=== PATIENT | male | born 1985 | race African-American/Black ===

== ENCOUNTER 2021-11-22 13:31 | Emergency (ER) | payer OTHER, SELFPAY ==
--- NOTE | ~2021-11-22 | XR_ITS ---
EXAMINATION: XR hand RT min 3V DATE: 11/22/2021 13:54 INDICATION: Right hand pain after lifting a box TECHNIQUE: Posteroanterior, oblique and lateral views of the right hand were obtained. COMPARISON: None. FINDINGS: Old fracture of the right third metacarpal diaphysis which is healed in essentially anatomic alignmen t. No acute traumatic malalignment or acute fracture. 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 Remaining joint spaces are relatively preserved. Soft tissues are unremarkable. IMPRESSION: 1. No acute osseous abnormality. Reviewed, dictated and finalized at location A.
[2021-11-22 13:39] VITALS: BP 137/77; PULSE 71; RESP 16; TEMP 36.8; O2SAT 99
--- NOTE | 2021-11-22 13:39 | ED.UPPEXIN ---
HPI - Extremity Injury (Upper) General Chief Complaint: Extremity Injury, Upper Stated Complaint: right wrist pain Time Seen by Provider: 11/22/21 13:39 Source: patient, family, RN notes reviewed and old records reviewed Mode of arrival: ambulatory Limitations: no limitations History of Present Illness HPI narrative: 36-year-old male presents to the [facility] with complaints of right dorsal aspect right hand pain. Patient states that he was at work yesterday when he picked up a box and felt a strain in the dorsal aspect of her right hand. No redness. Mild swelling patient reports is chronic, states he think he broke his hand years ago and it never healed properly. Full range of motion. No snuff box tenderness. Capillary refill under 2 seconds. 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 Related Data Allergies Allergy/AdvReac Type Severity Reaction Status Date / Time No Known Allergies Allergy Verified 11/22/21 13:49 Review of Systems Review of Systems: All systems reviewed & are unremarkable except as noted in HPI and below Constitutional: Constitutional: Reports no additional constitutional complaints, Denies chills, Denies fever(s), Denies headache(s) and Denies weakness Eyes: Eyes: Reports no additional eye complaints ENT: Reports system reviewed and no additional complaints, except as documented, Denies vertigo, Denies dizziness and Denies headache(s) Cardiovascular: Cardiovascular: Reports no additional cardiovascular complaints, Denies chest pain, Denies syncope and Denies dyspnea Respiratory: Respiratory: Reports no additional respiratory complaints, Denies cough and Denies dyspnea Gastrointestinal: Gastrointestinal: Reports no additional gastrointestinal complaints, Denies abdominal pain, Denies nausea and Denies vomiting Musculoskeletal: Musculoskeletal: Reports as per HPI, Denies joint swelling and Denies numbness Integumentary/Breasts: Skin/Breast: Reports system reviewed and no additional complaints, except as docu Neurologic: Reports system reviewed and no additional complaints, except as documented, Denies confusion, Denies vertigo, Denies dizziness, Denies syncope, Denies headache(s), Denies focal weakness, Denies numbness and Denies weakness Psychiatric: Psychiatric: Reports no additional psychiatric complaints and Denies confusion Allergic/Immunologic: Allergic/Immunologic: Reports no additional allergic/immunologic complaints PMFSH Past Medical History Medical History (Updated 11/22/21 @ 17:00 by Sandra Nagel APRN) No significant medical problems Surgical History Surgical History (Updated 11/22/21 @ 17:00 by Sandra Nagel APRN) No pertinent past surgical history Comments At the time of my signature, I reviewed and agree with the nursing past medical, surgical, social, and family history. There is no relevant family history pertinent to the patient complaint. Exam Const: General: healthy appearing and no acute distress; No confusion Nutritional Appearance: well nourished Orientation/consciousness: patient oriented x3 and No confusion Limitations: no limitations HENMT: Head: normal to inspection Ears: external ears normal Eyes: Pupils: Equal, round and reactive pupils present Neck: Neck: normal visual inspection, no lymphadenopathy and no meningeal signs Chest: Chest palpation & inspection: normal inspection of the chest Resp: Effort & Inspection: normal respiratory effort and no use of accessory muscles Auscultation: clear to auscultation bilaterally, no crackles, no rales, no rhonchi and no wheezes Cardio: Rate: regular rate Rhythm: regular rhythm Back/Spine/Pelvis: Cervical Spine: normal cervical lordosis Thoracic/Lumbar Spine: thoracic and lumbar spine normal to inspection Skin: General skin exam: normal color Rashes: no rashes Wounds: no wounds Neuro: General: patient oriented x3, moves all extremities, no meningeal signs, no focal motor deficits and No
== END 2021-11-22 14:18 | disposition home or self-care (01) ==
PROVIDERS: Emergency Provider Nurse Practitioner
DX: S63.91XA Sprain of unspecified part of right wrist and hand, initial encounter (principal); S66.911A Strain of unspecified muscle, fascia and tendon at wrist and hand level, right hand, initial encounter; X50.0XXA Overexertion from strenuous movement or load, initial encounter; Y99.0 Civilian activity done for income or pay
CPT/HCPCS: 73130; 99203; G0463

== ENCOUNTER 2021-12-30 11:21 | Emergency (ER) | payer OTHER, SELFPAY ==
[2021-12-30 11:33] VITALS: BP 124/85; PULSE 69; RESP 16; TEMP 37.1; O2SAT 99
--- NOTE | 2021-12-30 12:12 | ED.EYEPROB ---
HPI - Eye Problem General Chief complaint: Eye Problems Stated complaint: left pain/redness Time Seen by Provider: 12/30/21 12:15 Source: patient Mode of arrival: ambulatory Limitations: no limitations History of Present Illness HPI Narrative: 36 y/o male presented for c/o left eye irritation today. States he woke with left eye red, irritated, draining clear fluid. Denies crusted shut, photophobia or fb sensation. Denies pain or vision change, sinus congestion. He used red eye drops which caused more irritation. Denies sick contacts MD chief complaint: eye pain Related Data Allergies Allergy/AdvReac Type Severity Reaction Status Date / Time No Known Allergies Allergy Verified 12/30/21 11:36 Review of Systems Review of Systems: CONSTITUTIONAL: Denies body aches, fever, chills EYES:Endorses redness and itching to left eye ENT: Denies rhinorrhea, congestion, sore throat, or otalgia. CARDIOVASCULAR: Denies chest pain, palpitations RESPIRATORY: Denies cough or dyspnea. SKIN: Denies rash, itching, or wounds. MUSCULOSKELETAL: Denies back pain, joint pain, or myalgia. NEUROLOGIC: Denies headache All systems reviewed & are unremarkable except as noted in HPI and below PMFSH Past Medical History Medical History No significant medical problems Surgical History Surgical History No pertinent past surgical history Comments At time of signature, I have reviewed and agree with nursing past medical, surgical, social and family history unless otherwise noted. Please see nursing chart for further information. There is no relevant family history pertinent to the presenting complaint Exam Narrative: GENERAL: Well-appearing HEAD: Normocephalic, atraumatic. EYES: left conjunctival injection, no apparent purulent discharge, no eye lid swelling, EOMI. Lid eversion showed no FB. ENT: Mucous membranes pink and moist. No rhinorrhea. TMs normal bilaterally. CHEST: Clear to auscultation. HEART: Regular rate and rhythm. SKIN: Warm, dry, no rash. Normal skin turgor. NEURO: No focal deficits. Alert and oriented x3 PSYCH: Normal affect. Course Course Emergency Course: Patient is aware of diagnosis, understands and agrees to treatment plan. Anticipatory guidance given. Patient agrees to follow-up as directed and is aware of reasons to seek care at the emergency department. Portions of this record may have been created with voice recognition software Level of Care: Express Care Visit Vital Signs Vital signs: Vital Signs Temperature 98.8 F 12/30/21 11:33 Pulse Rate 69 12/30/21 11:33 Respiratory Rate 16 12/30/21 11:33 Blood Pressure 124/85 12/30/21 11:33 Pulse Oximetry 99 12/30/21 11:33 Oxygen Delivery Room Air 12/30/21 11:33 Temperature 98.8 F 12/30/21 11:33 Pulse Rate 69 12/30/21 11:33 Respiratory Rate 16 12/30/21 11:33 Blood Pressure 124/85 12/30/21 11:33 Pulse Oximetry 99 12/30/21 11:33 Oxygen Delivery Room Air 12/30/21 11:33 MDM - Eye Problem MDM Narrative Medical decision making narrative: Advised supportive measures, eyedrop prescription, and signs/symptoms to go to the ER. Pt is appropriate for outpt treatment and f/u. Differential Diagnosis Differential diagnosis: Likely corneal abrasion, conjunctivitis, acute iritis and other Discharge Plan Discharge Clinical Impression: Bacterial conjunctivitis Patient Disposition: Home, Self-Care Condition: Stable Instructions: Antibiotic Form, Conjunctivitis (ED) Additional Instructions: Avoid touching or rubbing your eye. Use over the counter lubricating eye drops as needed for irritation Use a warm or cool washcloth on your eye for comfort Use eyedrops as directed -- you are contagious for 24 hours after starting the antibiotic Practice good handwashing and hygiene to prevent spread of inf
== END 2021-12-30 12:18 | disposition home or self-care (01) ==
PROVIDERS: Emergency Provider Nurse Practitioner Family
DX: H10.9 Unspecified conjunctivitis (principal)
CPT/HCPCS: 99213; G0463

== ENCOUNTER 2023-06-15 18:08 | Emergency (ER) | payer OTHER, SELFPAY ==
--- NOTE | ~2023-06-15 | XR_ITS ---
EXAM: XR shoulder LT min 2V DATE: 06/15/2023 19:08 HISTORY: post-reduction . COMPARISON: Same date at 6:24 PM. FINDINGS/IMPRESSION: Successful interval left shoulder reduction. Hill-Sachs deformity. Reviewed, dictated and finalized at location K. DELIVERER
--- NOTE | ~2023-06-15 | XR_ITS ---
EXAM: XR shoulder LT min 2V DATE: 06/15/2023 18:29 HISTORY: injury, hx dislocation . COMPARISON: None available. FINDINGS: Normal mineralization. No fracture. Anterior dislocation of the humeral head. No lytic or blastic lesion. Joint spaces are maintained. No erosion or periosteal change. Soft tissues within nor mal limits. IMPRESSION: Anterior left shoulder dislocation. Reviewed, dictated and finalized at location K. ENT SAFETY MANAGER
[2023-06-15 18:10] VITALS: BP 141/81; PULSE 93; RESP 20; TEMP 36.1; O2SAT 98
--- NOTE | 2023-06-15 18:38 | ED.UPPEXIN ---
HPI - Extremity Injury (Upper) General Chief Complaint: Extremity Injury, Upper Stated Complaint: dislocated shoulder Time Seen by Provider: 06/15/23 18:18 Source: patient Mode of arrival: ambulatory Limitations: no limitations History of Present Illness HPI narrative: This is a 37-year-old male that presents to the emergency department for left shoulder injury sustained just prior to arrival. Reports he was wrestling and believes he dislocated his shoulder. He has done this several times before. Reports decreased range of motion and pain. Denies numbness. Related Data Allergies Allergy/AdvReac Type Severity Reaction Status Date / Time No Known Allergies Allergy Verified 12/30/21 11:36 Review of Systems Review of Systems: CONSTITUTIONAL: Denies fever MUSCULOSKELETAL: Reports joint pain, and myalgia. NEUROLOGIC: Denies numbness All systems reviewed & are unremarkable except as noted in HPI and below PMFSH Past Medical History Medical History (Updated 06/15/23 @ 19:00 by Sonya Michaels PA-C) No significant medical problems Social History Social History (Updated 06/15/23 @ 18:39 by Sonya Michaels PA-C) Substance use: never Exam Narrative: GENERAL: Well-appearing, well-nourished, and in no acute distress. HEAD: Normocephalic, atraumatic. EYES: EOMI. CHEST: No respiratory distress. HEART: Regular rate EXTREMITIES: Decreased active range of motion in the left shoulder with obvious deformity. Normal radial pulse. Normal sensation SKIN: Warm, dry, no rash. NEURO: No focal deficits. Alert and oriented x3. PSYCH: Normal mood and affect Course Course Emergency Course: Patient tolerated procedure well. Agrees with plan of care Vital Signs Vital signs: Vital Signs Temperature 96.9 F L 06/15/23 18:10 Pulse Rate 93 06/15/23 18:10 Respiratory Rate 20 06/15/23 18:10 Blood Pressure 141/81 H 06/15/23 18:10 Pulse Oximetry 98 06/15/23 18:10 Oxygen Delivery Room Air 06/15/23 18:10 Temperature 96.9 F L 06/15/23 18:10 Pulse Rate 93 06/15/23 18:10 Respiratory Rate 20 06/15/23 18:10 Blood Pressure 141/81 H 06/15/23 18:10 Pulse Oximetry 98 06/15/23 18:10 Oxygen Delivery Room Air 06/15/23 18:10 Procedures Orthopedic Joint Reduction Joint #1: Orthopedic Joint Reduction Date: 06/15/23 Orthopedic Joint Reduction Time: 18:57 Side: left Joint Reduction Location: shoulder Analgesia: other (fentanyl) Pre-Procedure Neuro Vascular Exam: normal Shoulder Technique Used (if applicable): external rotation Post-reduction neuro exam: intact Post-reduction vascular: intact Post Reduction X-Ray Obtained: Yes Post Reduction X-Ray Results: reduced Splint Applied: Yes Patient Tolerated Procedure: well and no complications MDM - Extremity Injury (Upper) MDM Narrative Medical decision making narrative: Patient presents to the ER for shoulder dislocation. Patient is neurovascularly intact. Successfully reduced. Placed in a shoulder immobilizer. Post reduction x-ray shows successful reduction. Will be given follow up with orthopedics. He was given warnings to return to the ER Differential Diagnosis Differential diagnosis: Likely dislocation of shoulder Imaging Data Radiologist's impression: ITS Impressions Shoulder X-Ray 06/15/23 18:32 IMPRESSION: Anterior left shoulder dislocation. ITS Impressions Shoulder X-Ray 06/15/23 18:32 IMPRESSION: Anterior left shoulder dislocation. Shoulder x-ray 19:14: Successful reduction. Hill Sachs deformity Critical Care Time Critical Care Time Critical Care Time: No Discharge Plan Discharge Clinical Impression: Dislocated shoulder Qualifiers: Encounter type: initial encounter Laterality: left Qualified Code(s): S43.005A - Unspecified dislocation of left shoulder joint, initial encounter Patient Disposition: Home, [facility]
[2023-06-15] MEDS: fentaNYL CITRATE INJ (*CRX) 100 MCG/2 ML VIAL 50 MCG IV PUSH (18:45)
[2023-06-15 18:50] VITALS: BP 153/95; PULSE 73; RESP 20; O2SAT 98
[2023-06-15 19:00] VITALS: BP 132/94; PULSE 70; RESP 20; O2SAT 100
== END 2023-06-15 19:27 | disposition home or self-care (01) ==
PROVIDERS: Emergency Provider Physician Assistant
DX: M24.412 Recurrent dislocation, left shoulder (principal)
CPT/HCPCS: 23650; 73030; 96374; 99285; J3010

== ENCOUNTER 2025-05-06 08:23 | Emergency (ER) | payer OTHER, SELFPAY ==
--- OUTSIDE RECORDS SUMMARY | 2023-07-06 10:02 | XMS_ITS | Continuity of Care Document ---
Author Organization [facility] Address [address] [place] [address] Phone Care Team Providers Care Foil Spooler Name Role Phone Jair Kim MD Unavailable Unavailable Advance Directives Directive Yes / No Effective Date File Name No Information Encounters Encounter Description Practice Location Reason(s) For Visit Diagnoses Date Provider Providers Copied on Encounter [facility], [address] [facility] [address], [id number], tel:[phone] [facility] No Information 4 Judy Adam. [address], [address], [place], [place], [id number] , [place]. tel: [phone] Family History Family Member Type Diagnosis Age At Onset No Information Payers Payer name Insurance type Covered alliance party ID Authoriza tion(s) No Information Social History Type Description Quantity Date Captured Comments Sex Male Smoking Status No Information Chief Complaint And Reason For Visit No Information Reason For Referral Reason For Referral No Information History Of Present Illness Encounter Date Complaint History Of Prese nt Illness No Information Functional Status Date Functional Assessmen t No Information Instructions Date Instruction Additional Infor mation No Information Assessments Type Assessment Date No Information Patient Care Teams Name Effective Dates (start - stop) Status Members No Information
[2025-05-06] VITALS (7 sets, daily range): BP systolic 128–143; BP diastolic 86–97; PULSE 59–73; RESP 14–24; TEMP 36.6; O2SAT 100
--- NOTE | ~2025-05-06 | XR_ITS ---
Examination: XR chest 2V Clinical History: cp X 1 DAY Comparison: None Technique: PA and Lateral Findings: Cardiomediastinal silhouette normal size and configuration. Lungs clear. No acute bony abnormality. IMPRESSION: 1. No acute cardiopulmonary findings. Reviewed, dictated and finalized at location R. ING [facility]AG[facility]ER
--- NOTE | 2025-05-06 08:25 | ECG_ITS ---
Test Date: 2025-05-06 08:28:55 Measurements Intervals [place] Rate: 66 P: 25 [place]: 129 QRS: 69 QRSD: 93 T: 47 QT: 367 QTc: 385 Interpretive Statements SINUS RHYTHM No previous ECG available for comparison Electronically Signed On 05-06-2025 13:20:32 BRASS PLATER by Harvey Deleon M.D.
--- OUTSIDE RECORDS SUMMARY | 2025-05-06 08:25 | XMS_ITS | Clinical Summary ---
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 Gender Identity Not on file Sexual Orientation Not on file Plan of Treatment Health Maintenance Due Date Last Done Comments Hepatitis C Virus (HCV) Screening 1984 TdaP Immunization 1984 Hepatitis B Immunization (1 of 3 - 19+ 3-dose series) 2003 Human Papillomavirus (HPV) Immunization (1 - 3-dose SCDM series) 2011 Influenza Immunization (#1) 2025 SARS-COV-2 Immunization ( season) 2025 Respiratory Syncytial Virus (RSV) Immunization (Adult) (1 - 1-dose 75+ series) 2059 Meningococcal Immunization (ACWY) Aged Out No longer eligible based on patient's age to complete this topic Pneumococcal Immunization Combined Aged Out No longer eligible based on patient's age to complete this topic Rotavirus Immunization Aged Out No lo nger eligible based on patient's age to complete this topic
[2025-05-06 09:05] LABS: Hematocrit 42.7 % (42.0-52.0); Hemoglobin 13.9 g/dL (14.0-18.0); Immature Granulocyte Percent A 0.2 % (0-0.5); Lymphocytes Absolute Auto 1.81 K/mm3 (0.9-3.2); Mean Corpuscular HGB Conc 32.6 g/dl (32-36); Mean Corpuscular Hemoglobin 27.8 pg (26-34); Mean Corpuscular Volume 85.4 fl (80-100); Nucleated Red Blood Cells Absolute Auto 0.000 K/mm3 (0.0-0.012); Nucleated Red Blood Cells Perc 0.0 % (0.0-0.2); Platelet Count Result 288 k/mm3 (150-375); Red Blood Count 5.00 M/mm3 (4.6-6.20); White Blood Count 5.9 K/mm3 (4.5-10.0)
[2025-05-06] MEDS: ASPIRIN 81 MG CHEWABLE TABLET 324 MG PO (09:12)
--- OUTSIDE RECORDS SUMMARY | 2025-05-06 09:14 | XMS_ITS ---
Author Organization Unknown ENCOUNTERS Encounter Performer Location Date Diagnosis Diagnosis Status Emergency [facility] [address] [place] [address] [id number] Pre Admit [facility] [address] [place] [address] [phone] Emergency [facility] [address] [place] [address] [phone] DARYL Pre Admit [facility] [address] [place] [address] [id number] Outpatient [address] [id number] *Note: Encounters from your own facility or health system may be excluded. Allergies, Adverse Reactions, Alerts Allergen Type Severity Identification Date Medications Name Date Quantity Days Supplied GPI Number
--- OUTSIDE RECORDS SUMMARY | 2025-05-06 09:14 | XMS_ITS | Clinical Summary ---
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
[2025-05-06 09:16] LABS: Alanine Aminotransferase 45 U/L (6-50); Albumin Level 3.9 g/dL (3.5-5.1); Alkaline Phosphatase 73 U/L (38-126); Anion Gap 4 mmol/L (4-12); Aspartate Amino Transferase 33 U/L (17-59); Bilirubin,Total 0.6 mg/dL (0.2-1.3); Blood Urea Nitrogen 9 mg/dL (9-20); Calcium 9.1 mg/dL (8.4-10.2); Carbon Dioxide 30 mmol/L (22-30); Chloride 103 mmol/L (98-107); Estimated CRCL calculation 88 ml/min; Estimated Glomerular Filt Rate > 60; Glucose 104 mg/dL (65-110); Lipase 25 U/L (23-300); Potassium 4.0 mmol/L (3.4-5.0); Sodium 137 mmol/L (137-145); Total Protein 6.5 g/dL (6.3-8.2)
[2025-05-06 09:23] LABS: INR 1.1; Partial Thromboplastin Time 24.3 Seconds (22.3-36.8); Prothrombin Time 13.8 Seconds (11.1-14.7)
[2025-05-06 09:27] LABS: Troponin I < 0.012 ng/mL (0.000-0.034)
[2025-05-06] MEDS: KETOROLAC 30 MG/ML VIAL (*BKC) IV PUSH (09:52)
--- NOTE | 2025-05-06 10:26 | ED_ITS ---
HPI - General Adult General Chief complaint: Chest Pain Stated complaint: woke up with chest pain Time Seen by Provider: 05/06/25 08:51 History of Present Illness HPI narrative: Patient is a 39-year-old male who presents ER with left-sided chest pain. Began early this morning when he is sleeping. Aching over left pectoralis area. Worse with arm movements. No difficulty breathing. No pain with deep breath. No recent injury. No history of heart disease. No runny nose or sore throat productive cough. Does not found any alleviating factors. Related Data Home Medications ?Medication ?Instructions ?Recorded ?Confirmed ?Last Taken ?Type No Home Medications 07/06/23 07/06/23 U nknown History Allergies Allergy/AdvReac Type Severity Reaction Status Date / Time No Known Allergies Allergy Verified 05/06/25 08:31 Review of Systems 2 Review of Systems: All systems reviewed & are unremarkable except as noted in HPI and below Constitutional: Constitutional: Reports no additional constitutional complaints ENT: Reports system reviewed and no additional complaints, except as documented Cardiovascular: Cardiovascular: Reports no additional cardiovascular complaints Respiratory: Respiratory: Reports no additional respiratory complaints [facility] Past Medical History Medical History (Updated 05/06/25 @ 13:28 by Jak Bolden MD) Instability of left shoulder joint No significant medical problems Surgical History Surgical History History of surgery on left wrist History of elbow surgery right History of hand surgery left thumb History of shoulder surgery bilateral Social History Social History Smoking status: Current some day smoker ( marijuana) Alcohol intake: never Substance use: current Substance use type: marijuana Do You Feel Safe in your Home?: Yes Lack of Transportation: No Lack of Food: Never True Current Housing: I Have Housing Concerned About Future Housing: No Difficulty Paying Gas/Electric Bills: No Difficulty Paying for Meds: No Currently Unemployed: No Education: High School Diploma/GED Difficulty w/ Childcare or Family Care: No Living arrangements: with family Occupation/Education: occupation 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 HEAD: Normocephalic, atraumatic. ENT: Mucous membranes moist. NECK: Supple. CHEST: Clear to auscultation. No respiratory distress. HEART: Regular rate and rhythm. Normal peripheral pulses. ABDOMEN: Soft, nontender, nondistended. EXTREMITIES: Normal range of motion. No edema. SKIN: Warm, dry, no rash. NEURO: Alert and oriented x3. PSYCH: Normal mood and affect. Course Course Emergency Course: Patient resting comfortably. Chest pain-free after Toradol. Troponin negative x2. Normal EKG. Discharge. Vital Signs Vital signs: Vital Signs Temperature 97.9 F 05/06/25 08:28 Pulse Rate 67 05/06/25 08:28 Respiratory Rate 18 05/06/25 08:28 Blood Pressure 143/95 H 05/06/25 08:28 Pulse Oximetry 100 05/06/25 08:28 Oxygen Delivery Room Air 05/06/25 08:28 Temperature 97.9 F 05/06/25 08:28 Pulse Rate 59 L 05/06/25 12:20 Respiratory Rate 14 05/06/25 12:20 Blood Pressure 140/86 05/06/25 12:20 Pulse Oximetry 100 05/06/25 12:20 Oxygen Delivery Room Air 05/06/25 09:07 Medical Decision Making Differential Diagnosis Differential Diagnosis: ACS, musculoskeletal pain, pneumonia, pneumothorax Vital Signs Vital Signs: Vital Signs Temperature 97.9 F 05/06/25 08:28 Pulse Rate 67 05/06/25 08:28 Respiratory Rate 18 05/06/25 08:28 Blood Pressure 143/95 H 05/06/25 08:28 Pulse Oximetry 100 05/06/25 08:28 Oxygen Delivery Room Air 05/06/25 08:28 Temperature 97.9 F 05/06/25 08:28 Pulse Rate 59 L 05/06/25 12:20 Respiratory Rate 14 05/06/25 12:20 Blood Pressure 140/86 05/06/25 12:20 Pulse Oximetry 100 05/06/25 12:20 Oxygen Delivery Room Air 05/06/25 09:07 Lab Data Lab results reviewed: Yes I reviewed the patient's lab results. 05/06/25 09:00 05/06/25 09:00 Labs: Lab Results 05/06/25 05/06/25 Range/Units 09:00 12:19 WBC 5.9 (4.5-10.0) K/mm3 RBC 5.00 (4.6-6.20) M/mm3 Hgb 13.9 L (14.0-18.0) g/dL Hct 42.7 (42.0-52.0) % MCV 85.4 (80-100) fl MCH 27.8 (26-34) pg MCHC 32.6 (32-36) g/dl RDW 13.7 (11.5-14.5) % Plt Count 288 (150-375) k/mm3 MPV 9.0 (7.4-10.4) fl Immature Gran % (Auto) 0.2 (0-0.5) % Neut % (Auto) 53.1 (45.5-73.1) % Lymph % (Auto) 30.6 (18.3-44.2) % [place] % (Auto) 11.0 H (2.6-8.5) % Eos % (Auto) 4.4 (0-4.4) % Baso % (Auto) 0.7 (0.2-1.2) % Lymph # (Auto) 1.81 (0.9-3.2) K/mm3 [place] # (Auto) 0.7 H (0.1-0.6) K/mm3 Eos # (Auto) 0.3 (0-0.3) K/mm3 Baso # (Auto) 0.0 (0.0-0.1) K/mm3 Abs Immat Gran (auto) 0.01 (0.00-0.031) K/mm3 Absolute Neuts (auto) 3.2 (1.3-6.7) K/mm3 Absolute Nucleated RBC 0.000 (0.0-0.012) K/mm3 Nucleated RBC % 0.0 (0.0-0.2) % PT 13.8 (11.1-14.7) Seconds INR 1.1 APTT 24.3 (22.3-36.8) Seconds Sodium 137 (137-145) mmol/L Potassium 4.0 (3.4-5.0) mmol/L Chloride 103 (98-107) mmol/L Carbon Dioxide 30 (22-30) mmol/L Anion Gap 4 (4-12) mmol/L BUN 9 (9-20) mg/dL Creatinine 0.88 (0.7-1.3) mg/dL Estim Creat Clear Calc 88 ml/min Estimated GFR > 60 (59 - ) Glucose 104 (65-110) mg/dL Calcium 9.1 (8.4-10.2) mg/dL Total Bilirubin 0.6 (0.2-1.3) mg/dL AST 33 (17-59) U/L ALT 45 (6-50) U/L Alkaline Phosphatase 73 (38-126) U/L Troponin I < 0.012 < 0.012 (0.000-0.034) ng/mL Total Protein 6.5 (6.3-8.2) g/dL Albumin 3.9 (3.5-5.1) g/dL Lipase 25 (23-300) U/L Imaging Data Attestation: I personally reviewed and interpreted this imaging study as follows: Radiologist's impression: ITS Impressions Chest X-Ray 05/06/25 09:46 IMPRESSION: 1. No acute cardiopulmonary findings. ECG Data EKG #1: Attestation: I personally reviewed and interpreted this ECG as follows: ECG completion date: 05/06/25 ECG completion time: 12:08 EKG Interpretation: bradycardia (58), sinus rhythm, no ST changes, normal QRS and normal QT Discharge Plan Discharge Clinical Impression: Atypical chest pain Patient Disposition: Home Condition: Stable Instructions: Chest Pain (ED) Additional Instructions: Please return to the emergency department if you develop severe and persistent chest pain, difficulty breathing, dizziness, leg swelling or if you are coughing up blood as these can be signs of a medical emergency. Please call your doctor for a follow up appointment to determine the need for further testing. Patient Language: German Prescriptions: No Action No Home Medications Follow-up/Referrals: PHYSICIAN,KIOSK SALES REPRESENTATIVE [Primary Care Provider, Internal Medicine] Herman Moura MD [Physician, Family Practice] - 1 Week Quality HEART score for chest pain patients History: slightly suspicious ECG: normal Age: < or = to 45 years Risk factors: no risk factors known Troponin: < or = to 1x normal limit Heart score: 0
--- NOTE | 2025-05-06 12:03 | ECG_ITS ---
Test Date: 2025-05-06 12:08:53 Measurements Intervals [place] Rate: 58 P: 30 WI: 159 QRS: 50 QRSD: 89 T: 34 QT: 389 QTc: 385 Interpretive Statements SINUS BRADYCARDIA Compared to ECG 05/06/2025 08:28:55 heart rate decreased Electronically Signed On 05-06-2025 13:25:01 [employer] by Harvey Deleon M.D.
[2025-05-06 12:55] LABS: Troponin I < 0.012 ng/mL (0.000-0.034)
== END 2025-05-06 14:29 | disposition home or self-care (01) ==
PROVIDERS: Emergency Provider Emergency Medicine
DX: R07.89 Other chest pain (principal); F12.90 Cannabis use, unspecified, uncomplicated
CPT/HCPCS: 36415; 71046; 80053; 83690; 84484; 85025; 85610; 85730; 93005; 96374; 99284; A9270; J1885